=== PATIENT | male | born 1965 | race Caucasian/White ===

== ENCOUNTER 2018-02-05 06:36 | Day surgery (SDC) | payer MEDICAID ==
[~2018-02-05] VITALS: Ht 160 cm; Wt 71.2 kg
[~2018-02-05 06:36] MED LIST: AMLO2.5T45 PO; ASPI-1159 PO; ATOR40TA70 PO; LISI-604 PO; METF500T6 PO; PRED1DRO BOTHEYE
[2018-02-05] MEDS ORDERED: MIDAZOLAM HCL 2 MG/2 ML VIAL ONE (09:58)
[2018-02-05] MEDS ORDERED: FENTANYL CITRATE/PF 50MCG/ML 2ML VIAL ONE (09:58)
[2018-02-05] MEDS ORDERED: PROPOFOL 200MG/20ML VIAL IV ONE (10:03)
[2018-02-05] MEDS ORDERED: TRIAMCINOLONE ACETONIDE 40MG/ML 1ML VIAL ONE (10:29)
[2018-02-05] MEDS ORDERED: BALANCED SALT IRRIG SOLN 15ML ONE (10:57)
[2018-02-05] MEDS ORDERED: CIPROFLOXACIN 0.3% OPHTH SOLN 2.5ML ONE (10:57)
[2018-02-05] MEDS ORDERED: LIDOCAINE HCL 2%/EPINEPHRINE 1:100,000 20 ML VIAL INFIL ONE (10:57)
[2018-02-05] MEDS ORDERED: TETRACAINE 0.5% OPHTH DROPS 4ML ONE (10:57)
[2018-02-05] MEDS ORDERED: PREDNISOLONE ACETATE 1% OPHTH DROPS 1ML ONE (10:57)
[2018-02-05] MEDS ORDERED: BUPIVACAINE HCL/PF 0.75% (7.5MG/ML) 10ML ONE (10:57)
[2018-02-05] MEDS ORDERED: NEO/POLYMYX B SULF/DEXAMETH OPHTH OINT 3.5GM ONE (10:57)
[2018-02-05] MEDS ORDERED: SODIUM CHLORIDE 0.9% 1,000 ML IV ONE (11:09)
[2018-02-05] MEDS ORDERED: IBUPROFEN 600MG TABLET PO SCH (11:15)
[2018-02-05] MEDS ORDERED: HYDROMORPHONE HCL/PF 2MG/ML CPJ IV PRN (11:15)
[2018-02-05] MEDS ORDERED: ONDANSETRON HCL 4MG/2ML VIAL IV PRN (11:15)
== END 2018-02-05 12:15 | disposition home or self-care (01) ==
LOC: OR 06:36
PROVIDERS: ATTEND Ophthalmology
DX: H11.001 Unspecified pterygium of right eye (principal); I10 Essential (primary) hypertension; E78.00 Pure hypercholesterolemia, unspecified; E11.9 Type 2 diabetes mellitus without complications; Z79.82 Long term (current) use of aspirin; Z79.899 Other long term (current) drug therapy; Z98.890 Other specified postprocedural states
CPT/HCPCS: 65426; 82962; J2250; J3010; J3301; J3490; J7030; J2704

== ENCOUNTER 2018-07-30 06:21 | Day surgery (SDC) | payer MEDICAID ==
[~2018-07-30] VITALS: Ht 160 cm; Wt 71.2 kg
[~2018-07-30 06:21] MED LIST changes: +METF-414 PO; -METF500T6 PO
[2018-07-30] MEDS ORDERED: LACTATED RINGERS 1,000 ML IV SCH (07:20)
[2018-07-30] MEDS ORDERED: PROPOFOL 200MG/20ML VIAL IV ONE (09:22)
[2018-07-30] MEDS ORDERED: MIDAZOLAM HCL 2 MG/2 ML VIAL ONE (09:22)
[2018-07-30] MEDS ORDERED: FENTANYL CITRATE/PF 50MCG/ML 2ML VIAL ONE (09:22)
[2018-07-30] MEDS ORDERED: ONDANSETRON HCL 4MG/2ML INJ ONE (09:27)
[2018-07-30] MEDS ORDERED: DEXAMETHASONE 4MG/ML 1ML VIAL ONE (09:27)
[2018-07-30] MEDS ORDERED: TRIAMCINOLONE ACETONIDE 40MG/ML 1ML VIAL ONE (09:34)
[2018-07-30] MEDS ORDERED: CEFAZOLIN SODIUM 1000MG/VIAL ONE (09:35)
[2018-07-30] MEDS ORDERED: LIDOCAINE HCL/PF 1% 10 MG/ML 5ML VIAL ONE (09:35)
[2018-07-30] MEDS ORDERED: SODIUM CHLORIDE 0.9% 10ML VIAL ONE (09:35)
[2018-07-30] MEDS ORDERED: LABETALOL HCL 5MG/ML VIAL 20ML IV PRN (10:00)
[2018-07-30] MEDS ORDERED: HYDROMORPHONE HCL/PF 2MG/ML CPJ IV PRN (10:00)
[2018-07-30] MEDS ORDERED: MEPERIDINE HCL/PF 25MG/ML CPJ IV PRN (10:00)
[2018-07-30] MEDS ORDERED: ONDANSETRON HCL 4MG/2ML INJ IV PRN (10:00)
[2018-07-30] MEDS ORDERED: LIDOCAINE HCL 2%/EPINEPHRINE 1:100,000 20 ML VIAL INFIL ONE (15:40)
[2018-07-30] MEDS ORDERED: BALANCED SALT IRRIG SOLN 15ML ONE (15:40)
[2018-07-30] MEDS ORDERED: PREDNISOLONE ACETATE 1% OPHTH DROPS 1ML ONE (15:40)
[2018-07-30] MEDS ORDERED: BUPIVACAINE HCL/PF 0.75% (7.5MG/ML) 10ML ONE (15:40)
[2018-07-30] MEDS ORDERED: CIPROFLOXACIN 0.3% OPHTH SOLN 2.5ML ONE (15:40)
[2018-07-30] MEDS ORDERED: TETRACAINE 0.5% OPHTH DROPS 4ML ONE (15:40)
[2018-07-30] MEDS ORDERED: LIDOCAINE HCL/PF 2% 20 MG/ML 10ML VIAL ONE (15:40)
[2018-07-30] MEDS ORDERED: NEO/POLYMYX B SULF/DEXAMETH OPHTH OINT 3.5GM ONE (15:40)
== END 2018-07-30 11:15 | disposition home or self-care (01) ==
LOC: OR 06:21
PROVIDERS: ATTEND Ophthalmology
DX: H11.001 Unspecified pterygium of right eye (principal)
CPT/HCPCS: 65426; 82962; A4216; J0690; J1100; J2250; J2405; J3010; J3301; J3490; J2704